=== PATIENT | female | born 1960 | race Caucasian/White ===

== ENCOUNTER → 2016-12-31 | Outpatient (CLI) | payer OTHER ==
[~2016-12-31] MED LIST: ASP325TEC PO; CRAN200C PO; HYDR1TAB PO; OMEG-12 PO; PREN1TAB39 PO
--- NOTE | 2017-01-01 08:15 | Diagnostic Imaging Report ---
Transabdominal and transvaginal pelvic ultrasound. INDICATION: Adnexal mass, pelvic pain. FINDINGS: The uterus is 7.5 x 4.2 x 3.9 cm. The endometrial stripe is 6 mm in thickness with no internal vascularity seen. There is heterogeneity in the myometrium. There is a hypoechoic rounded lesion in the central aspect of the uterus possibly involving the endometrium, not well defined on this exam. This could be a myometrial fibroid with submucosal component. The ovaries are not seen probably obscured by bowel gas. IMPRESSION: 1. There is endometrial thickening measuring up to 6 mm in thickness. This could correlate with endometrial hyperplasia, polyp, or carcinoma. 2. Indeterminate hypoechoic lesion in the central aspect of the uterus. This is superimposed on a background of heterogeneous myometrium. The endometrium is not clearly identified, but this lesion appears to be abutting the endometrium and could represent a uterine fibroid with a submucosal component. Report was faxed to office of Sharon Vaughn APRN, @ 8:14 AM/ryan. Dictated by: Dictated on workstation # [id number]
== END ==
LOC: RAD 13:41
PROVIDERS: ATTEND Nurse Practitioner
DX: R93.8 Abnormal findings on diagnostic imaging of other specified body structures (principal); Z12.31 Encounter for screening mammogram for malignant neoplasm of breast
CPT/HCPCS: 76830; 76856; 77067

== ENCOUNTER 2019-12-30 05:41 | Outpatient (RCR) | payer BC, OTHER ==
[~2019-12-30] VITALS: Ht 162.6 cm; Wt 81.8 kg
[~2019-12-30 05:41] MED LIST changes: +BACI1TAB3 PO; +ESTR1TAB24 PO; +GABA300C PO; +GEMF600T8 PO; +LOSA100T57 PO; +OMEG100032 PO; +PREN-8 PO; +PSYL0.5211 PO
== END 2019-12-30 08:55 | disposition home or self-care (01) ==
LOC: PREOP 05:41
PROVIDERS: ATTEND Specialist
DX: Z01.812 Encounter for preprocedural laboratory examination (principal); Z20.828 Contact with and (suspected) exposure to other viral communicable diseases
CPT/HCPCS: 87635

== ENCOUNTER 2020-01-01 06:54 | Day surgery (SDC) | payer BC, OTHER ==
[~2020-01-01] VITALS: Ht 162.6 cm; Wt 81.8 kg
--- NOTE | 2020-01-01 07:10 | Ophthalmologist Pre-Op Note ---
Pre-Operative Progress Note H&P Reviewed The H&P was reviewed, patient examined and no changes noted. Date H&P Reviewed: Jan 01, 2020 Time H&P Reviewed: 07:09 Pre-Op Dx Cataract, Right Eye AUGUSTINA BARBER MD Jan 01, 2020 07:09
[2020-01-01] MEDS ORDERED: MOXIFLOXACIN OPHTH SOLN 5 MG/ML 0.3 ML SYRINGE OP ONE (07:15)
[2020-01-01] MEDS ORDERED: TIMOLOL MALEATE 0.5% 5 ML (TIMOPTIC) BTL OU PRN (07:15)
[2020-01-01] MEDS ORDERED: POVIDONE (BETADINE) OPHTH SOLN 5% 30 ML OP ONE (07:15)
[2020-01-01] MEDS ORDERED: LIDOCAINE PF 1% 2 ML VIAL IR PRN (07:15)
[2020-01-01] MEDS: TETRACAINE 0.5% OPHTH SOLN 4 ML BTL (SINGLE DOSE ONLY) OU PRN ×4 (07:19→07:36)
[2020-01-01] MEDS: TROPICAMIDE 1% OPH SOLN (MYDRIACYL) 15 ML BTL OP SCH ×3 (07:25→07:36)
[2020-01-01] MEDS: PHENYLEPHRINE 10% OPHTH (NEO-SYN) 5 ML BTL OU SCH ×3 (07:25→07:36)
[2020-01-01] MEDS ORDERED: MIDAZOLAM 2 MG/2 ML (VERSED) VIAL ONE (07:30)
[2020-01-01 07:38] VITALS: BP 125/86
--- NOTE | 2020-01-01 08:58 | Ophthalmology Operative Report ---
Cataract removal/placement IOL PREOPERATIVE DIAGNOSIS: Cataract Right Eye POSTOPERATIVE DIAGNOSIS: Cataract Right Eye PROCEDURE: Cataract removal and placement of posterior chamber implant, right eye SURGEON: Twin Barber ANESTHESIA: Topical with sedation COMPLICATIONS: None ESTIMATED BLOOD LOSS: Minimal DESCRIPTION OF PROCEDURE: After proper informed consent was obtained, the patient, a 59 female, was taken to the Operating Room and the right eye was anesthetized with tetracaine. The right eye was then prepped and draped in the usual manner. A wire lid speculum was placed. A paracentesis was made at the left hand position. Preservative free lidocaine was injected into the anterior chamber followed by viscoelastic. A clear corneal incision was made in the temporal position. A capsulorrhexis was preformed and the central nuclear and cortical material were removed. The posterior capsule was polished and Kulwinder 12.0 AU00T0 IOL was placed into the capsular bag. The residual viscoelastic was aspirated and balanced saline solution was injected into the anterior chamber. Moxifloxacin was injected into the anterior chamber. The wound was checked and found to be water tight. The patient tolerated the procedure well without complications. TWIN BARBER MD Jan 01, 2020 08:58
[2020-01-01 09:05] VITALS: BP 127/69
--- NOTE | 2020-01-01 09:57 | Anesthesia-General Post-Op ---
MAC Patient Condition Mental Status/LOC: Same as Preop Cardiovascular: Satisfactory Nausea/Vomiting: Absent Respiratory: Satisfactory Pain: Controlled Complications: Absent Post Op Complications Complications None Follow Up Care/Instructions Patient Instructions None needed. Anesthesiology Discharge Order Discharge Order Patient is doing well, no complaints, stable vital signs, no apparent adverse anesthesia problems. No complications reported per nursing. DORIS WILSON CRNA Jan 01, 2020 09:57
[2020-01-01] MEDS ORDERED: acetaZOLAMIDE ER 500 MG CAP (DIAMOX SEQUELS) PO ONE (11:00)
== END 2020-01-01 09:05 | disposition home or self-care (01) ==
LOC: SDC 06:54
PROVIDERS: ATTEND Specialist
DX: H25.11 Age-related nuclear cataract, right eye (principal); I10 Essential (primary) hypertension; E78.00 Pure hypercholesterolemia, unspecified; Z79.899 Other long term (current) drug therapy; Z88.1 Allergy status to other antibiotic agents; Z83.3 Family history of diabetes mellitus
CPT/HCPCS: 66984; V2632

== ENCOUNTER 2020-01-26 06:35 | Outpatient (RCR) | payer BC | END 2020-01-26 15:00 | disposition home or self-care (01) | LOC: PREOP 06:35 | PROVIDERS: ATTEND Specialist | DX: Z01.818 Encounter for other preprocedural examination (principal) ==

== ENCOUNTER 2020-02-03 05:39 | Outpatient (RCR) | payer BC | END 2020-02-03 13:08 | disposition home or self-care (01) | LOC: PREOP 05:39 | PROVIDERS: ATTEND Specialist | DX: Z01.812 Encounter for preprocedural laboratory examination (principal); Z20.828 Contact with and (suspected) exposure to other viral communicable diseases | CPT/HCPCS: 87635 ==

== ENCOUNTER 2020-02-05 06:47 | Day surgery (SDC) | payer BC ==
[~2020-02-05] VITALS: Ht 162 cm; Wt 82.0 kg
[2020-02-05 06:50] VITALS: BP 126/105
[2020-02-05] MEDS: TETRACAINE 0.5% OPHTH SOLN 4 ML BTL (SINGLE DOSE ONLY) OU PRN ×4 (07:00→07:28)
[2020-02-05] MEDS ORDERED: LIDOCAINE PF 1% 2 ML VIAL IR PRN (07:00)
[2020-02-05] MEDS ORDERED: MOXIFLOXACIN OPHTH SOLN 5 MG/ML 0.3 ML SYRINGE OP ONE (07:00)
[2020-02-05] MEDS ORDERED: POVIDONE (BETADINE) OPHTH SOLN 5% 30 ML OP ONE (07:00)
[2020-02-05] MEDS ORDERED: TIMOLOL MALEATE 0.5% 5 ML (TIMOPTIC) BTL OU PRN (07:00)
[2020-02-05] MEDS: TROPICAMIDE 1% OPH SOLN (MYDRIACYL) 15 ML BTL OP SCH ×3 (07:10→07:28)
[2020-02-05] MEDS: PHENYLEPHRINE 10% OPHTH (NEO-SYN) 5 ML BTL OU SCH ×3 (07:10→07:28)
--- NOTE | 2020-02-05 07:51 | Ophthalmologist Pre-Op Note ---
Pre-Operative Progress Note H&P Reviewed The H&P was reviewed, patient examined and no changes noted. Date H&P Reviewed: Feb 05, 2020 Time H&P Reviewed: 07:51 Pre-Op Dx Cataract, Left Eye AUGUSTINA BARBER MD Feb 05, 2020 07:51
[2020-02-05] MEDS ORDERED: MIDAZOLAM 2 MG/2 ML (VERSED) VIAL ONE (07:54)
[2020-02-05] MEDS ORDERED: acetaZOLAMIDE ER 500 MG CAP (DIAMOX SEQUELS) PO ONE (08:00)
--- NOTE | 2020-02-05 08:17 | Ophthalmology Operative Report ---
Cataract removal/placement IOL PREOPERATIVE DIAGNOSIS: Cataract Left Eye POSTOPERATIVE DIAGNOSIS: Cataract Left Eye PROCEDURE: Cataract removal and placement of posterior chamber implant, left eye SURGEON: Twin Barber ANESTHESIA: Topical with sedation COMPLICATIONS: None ESTIMATED BLOOD LOSS: Minimal DESCRIPTION OF PROCEDURE: After proper informed consent was obtained, the patient, a 60 female, was taken to the Operating Room and the left eye was anesthetized with tetracaine. The left eye was then prepped and draped in the usual manner. A wire lid speculum was placed. A paracentesis was made at the left hand position. Preservative free lidocaine was injected into the anterior chamber followed by viscoelastic. A clear corneal incision was made in the temporal position. A capsulorrhexis was preformed and the central nuclear and cortical material were removed. The posterior capsule was polished and an Kulwinder 17.0 AU00T0 was placed into the capsular bag. The residual viscoelastic was aspirated and balanced saline solution was injected into the anterior chamber. Moxifloxacin was injected into the anterior chamber. The wound was checked and found to be water tight. The patient tolerated the procedure well without complications. TWIN BARBER MD Feb 05, 2020 08:17
[2020-02-05 08:27] VITALS: BP 125/75
--- NOTE | 2020-02-05 10:16 | Anesthesia-General Post-Op ---
MAC Patient Condition Mental Status/LOC: Same as Preop Cardiovascular: Satisfactory Nausea/Vomiting: Absent Respiratory: Satisfactory Pain: Controlled Complications: Absent Post Op Complications Complications None Follow Up Care/Instructions Patient Instructions None needed. Anesthesiology Discharge Order Discharge Order Patient is doing well, no complaints, stable vital signs, no apparent adverse anesthesia problems. No complications reported per nursing. VESNA EUCEDA CRNA Feb 05, 2020 10:16
== END 2020-02-05 08:27 | disposition home or self-care (01) ==
LOC: SDC 06:47
PROVIDERS: ATTEND Specialist
DX: H25.12 Age-related nuclear cataract, left eye (principal); I10 Essential (primary) hypertension; E78.00 Pure hypercholesterolemia, unspecified; Z79.899 Other long term (current) drug therapy; Z88.1 Allergy status to other antibiotic agents; Z83.3 Family history of diabetes mellitus
CPT/HCPCS: 66984; V2632

== ENCOUNTER 2020-08-09 17:49 | Emergency (ER) | payer BC ==
[~2020-08-09 17:49] MED LIST changes: -GEMF600T8 PO; +GEMF600T88 PO
[2020-08-09] MEDS ORDERED: ENOXAPARIN 80 MG/0.8 ML (LOVENOX) SYR SC ONE (18:45)
--- NOTE | 2020-08-09 19:08 | ED Lower Extremity ---
General Chief Complaint: Lower Extremity Stated Complaint: RT LEG PAIN/SWELLING Source: patient History of Present Illness Date Seen by Provider: Aug 09, 2020 Time Seen by Provider: 18:00 Initial Comments Patient is a 52-year-old female presents with cute onset right calf/leg pain starting 4 hours prior to ED arrival. Patient denies trauma repetitive strain injury. Right calf is tender swollen nonerythematous. Patient states she first noticed light petechial rash on right leg week prior. No itching, warmth or fever. Right leg is approximately 30% larger than the left leg. Patient denies history of DVT PE, chest pain palpitations or shortness of breath. She denies any recent travel or other PE risk factors. No known history of cancer. No medications or therapies taken prior to ED arrival. Onset: this afternoon Pain/Injury Location: right leg Method of Injury: other Modifying Factors: Improves With Other Allergies and Home Medications Allergies Coded Allergies: Cephradine (Unverified Allergy, 05/31/11) Home Medications Bacillus Coagulans 1 Each Tab.chew, 1 EACH PO DAILY, (Reported) Estradiol 1 Mg Tablet, 1 MG PO DAILY, (Reported) Gabapentin 300 Mg Capsule, 300 MG PO QID, (Reported) Gemfibrozil 600 Mg Tablet, 600 MG PO BID, (Reported) Losartan Potassium 100 Mg Tablet, 100 MG PO DAILY, (Reported) [place]-3/Dha/Epa/Fish Oil 1,000 Mg Capsule, 1,000 MG PO DAILY, (Reported) Vit W-Ca,Fe,FA(<1 mg) 1 Each Tablet, 1 EACH PO DAILY, (Reported) Psyllium Husk 0.52 Gm Capsule, 0.52 GM PO DAILY, (Reported) Patient Home Medication List Home Medication List Reviewed: Yes Review of Systems Constitutional: no symptoms reported EENTM: no symptoms reported Respiratory: no symptoms reported Cardiovascular: no symptoms reported Gastrointestinal: no symptoms reported Genitourinary: no symptoms reported Musculoskeletal: no symptoms reported Skin: no symptoms reported Psychiatric/Neurological: No Symptoms Reported All Other Systems Reviewed Negative Unless Noted: Yes Past Mqvmcdy-Jkawuk-Cpuxtv Hx Past Med/Social Hx: Reviewed Nursing Past Med/Soc Hx Past Medical History Reproductive Disorders: Yes (MENORRHAGIA) Physical Exam Vital Signs Capillary Refill : Height, Weight, BMI Height: '" Weight: lbs. oz. kg; BMI Method: General Appearance: WD/WN, no apparent distress Cardiovascular: regular rate, rhythm Respiratory: lungs clear, normal breath sounds Progress/Results/Core Measures Results/Orders Lab Results Laboratory Tests Test 08/09/20 18:55 Range/Units My Orders Orders - ISABEL HUITRON DO Cbc With Automated Diff (08/09/20 18:41) Basic Metabolic Panel (08/09/20 18:41) Enoxaparin Injection (Lovenox Injection) (08/09/20 18:45) Departure Communication (Admissions) Basic labs obtained. Patient with high clinical index of suspicion for DVT. Ultrasound is not available at this facility. Calls were made to [facility] in [facility] which also lack ultrasound capability. Patient was given a single dose of Lovenox with instructions to return to the emergency department tomorrow morning for venous Doppler ultrasound of right leg to rule out DVT. She verbalized understanding that Lovenox is only a temporizing measure until ultrasound can be made to establish diagnosis. Patient agrees to discharge plan prior to departure. Impression Primary Impression: Right leg pain Disposition: 01 HOME, SELF-CARE Condition: Stable Departure-Patient Inst. Decision time for Depature: 19:06 Referrals: NOE ALAN APRN (PCP) Primary Care Physician CHRISTIAN VINES MD (Family) Primary Care Physician Patient Instructions: Deep Vein Thrombosis (Blood Clots in the Legs) (DC) Add. Discharge Instructions: You were evaluated in the emergency department for right leg pain and swelling. The cause of your symptoms has not been determined but your exam is concerning for a blood clot in your right leg. A prophylactic dose of Lovenox was given prior to obtaining an outpatient ultrasound tomorrow. Please return to the emergency department after 9 AM or make arrangements with your PCP for outpatient ultrasound tomorrow. In the meantime, if you develop chest pain palpitations shortness of breath or other concerning symptoms, return to the emergency department immediately. All discharge instructions reviewed with patient and/or family. Voiced understanding. ISABEL HUITRON DO Aug 09, 2020 19:07
[2020-08-09 19:12] LABS: BASOPHILS % (AUTO) 0 % (0-10); EOSINOPHILS # (AUTO) 0.1 10^3/uL (0.0-0.3); EOSINOPHILS % (AUTO) 1 % (0-10); HEMATOCRIT 37 % (35-52); HEMOGLOBIN 12.3 G/DL (11.5-16.0); LYMPHOCYTES # (AUTO) 1.5 X 10^3 (1.0-4.0); LYMPHOCYTES % (AUTO) 16 % (12-44); MEAN CORPUSCULAR HEMOGLOBIN 32 PG (25-34); MEAN CORPUSCULAR HGB CONC 33 G/DL (32-36); MEAN CORPUSCULAR VOLUME 97 FL (80-99); MEAN PLATELET VOLUME 9.9 FL (7.4-10.4); MONOCYTES # (AUTO) 0.8 X 10^3 (0.0-1.0); MONOCYTES % (AUTO) 9 % (0-12); NEUTROPHILS # (AUTO) 6.7 X 10^3 (1.8-7.8); NEUTROPHILS % (AUTO) 74 % (42-75); PLATELET COUNT 152 10^3/uL (130-400); WHITE BLOOD COUNT 9.1 10^3/uL (4.3-11.0)
[2020-08-09 19:19] LABS: CALCIUM 9.8 MG/DL (8.5-10.1); CREATININE SERUM 0.95 MG/DL (0.60-1.30); POTASSIUM 4.3 MMOL/L (3.6-5.0)
[2020-08-09 19:28] VITALS: BP 129/87
== END 2020-08-09 19:28 | disposition home or self-care (01) ==
LOC: EDUNIT# 17:49 → ER FS 17:52
DX: M79.604 Pain in right leg (principal)
CPT/HCPCS: 36415; 80048; 85025; 99283

== ENCOUNTER → 2020-08-10 | Outpatient (CLI) | payer BC ==
--- NOTE | 2020-08-10 11:31 | Diagnostic Imaging Report ---
EXAMINATION: US Right Lower Extremity Venous Duplex. TECHNIQUE: Multiple real-time grayscale images were obtained over the right lower extremity in various projections. Additional spectral analysis and color Doppler duplex images were also obtained. HISTORY: Right lower extremity pain and edema. COMPARISON: None available. FINDINGS: Deep vein thrombus is seen throughout the right superficial femoral and popliteal veins and included veins of the right calf. The common femoral and profunda femoris veins of the right lower extremity demonstrate normal compressibility and color Doppler filling. IMPRESSION: 1. Occlusive deep vein thrombus involving the right superficial femoral and popliteal veins and extending into the calf veins. Findings were called to the emergency department immediately following the exam by the sales training representative. Dictated by: Dictated on workstation # [id number]
== END ==
LOC: RAD 10:00
PROVIDERS: ATTEND Emergency Medicine
DX: I82.411 Acute embolism and thrombosis of right femoral vein (principal); I82.431 Acute embolism and thrombosis of right popliteal vein

== ENCOUNTER 2020-09-07 11:33 | Emergency (ER) | payer SELFPAY ==
[~2020-09-07] VITALS: Ht 162 cm; Wt 86.0 kg
--- NOTE | 2020-09-07 11:36 | ED Respiratory ---
General Chief Complaint: Respiratory Problems Stated Complaint: CHEST PAIN History of Present Illness Date Seen by Provider: Sep 07, 2020 Time Seen by Provider: 11:36 Initial Comments 60-year-old female presents with 3-day history of chest tightness and shortness of air. Denies any recent illness, fever cough or malaise. Denies any radiation of pain, abdominal pain or back pain. Recent past medical history significant for DVT of the right lower extremity 4 weeks ago and she has been on Eliquis ever since. He is a non-smoker and has no history of asthma or reactive airways. Allergies and Home Medications Allergies Coded Allergies: cephradine (Unverified Allergy, Unknown, 08/10/20) Home Medications Bacillus Coagulans 1 Each Tab.chew, 1 EACH PO DAILY, (Reported) Estradiol 1 Mg Tablet, 1 MG PO DAILY, (Reported) Gabapentin 300 Mg Capsule, 300 MG PO QID, (Reported) Gemfibrozil 600 Mg Tablet, 600 MG PO BID, (Reported) Losartan Potassium 100 Mg Tablet, 100 MG PO DAILY, (Reported) [place]-3/Dha/Epa/Fish Oil 1,000 Mg Capsule, 1,000 MG PO DAILY, (Reported) Prednisone 50 Mg Tab, 50 MG PO DAILY Prescribed by: ENRIQUE MARTINEZ on 09/07/20 1358 Vit W-Ca,Fe,FA(<1 mg) 1 Each Tablet, 1 EACH PO DAILY, (Reported) Psyllium Husk 0.52 Gm Capsule, 0.52 GM PO DAILY, (Reported) Patient Home Medication List Home Medication List Reviewed: Yes Review of Systems Review of Systems Constitutional: No fever, No malaise, No weakness EENTM: no symptoms reported Respiratory: see HPI; No cough; short of breath; No stridor, No wheezing Cardiovascular: No edema, No palpitations, No syncope; other (chest tightness, not pain) Gastrointestinal: No abdominal pain, No loss of appetite, No nausea, No vomiting Musculoskeletal: No back pain, No joint pain, No muscle pain Skin: No change in color, No rash Psychiatric/Neurological: Denies Numbness, Denies Seizure, Denies Weakness Hematologic/Lymphatic: Blood Clots; Denies Easy Bleeding, Denies Easy Bruising Past Ezaaawu-Yiafos-Dlkpdq Hx Patient Social History Tobacco Use?: No Seasonal Allergies Seasonal Allergies: No Past Medical History Surgeries: Yes (ablation) Cardiac, Section, Eye Surgery, Orthopedic, Tubal Ligation Respiratory: No Cardiac: Yes Hypertension, Irregular Heartbeat, Peripheral Vascular Neurological: Yes Neuropathy Reproductive Disorders: Yes (MENORRHAGIA) Sexually Transmitted Disease: No Genitourinary: No Gastrointestinal: No Musculoskeletal: Yes Chronic Back Pain Endocrine: No HEENT: Yes (bilateral cataract removal) Cataract Cancer: No Psychosocial: No Integumentary: No Blood Disorders: No Physical Exam Vital Signs - First Documented 09/07/20 11:40 Temp 36.6 Pulse 95 Resp 20 B/P (MAP) 147/74 (98) Pulse Ox 99 O2 Delivery Room Air Capillary Refill : Height: '" Weight: lbs. oz. kg; BMI Method: General Appearance: WD/WN, no apparent distress HEENT: PERRL/EOMI, normal ENT inspection Neck: non-tender, supple Respiratory: chest non-tender, lungs clear, normal breath sounds, no respiratory distress, no accessory muscle use Cardiovascular: regular rate, rhythm, no edema, no gallop, no JVD, no murmur Gastrointestinal: non tender, soft Extremities: normal range of motion, non-tender, normal inspection, no pedal edema, no calf tenderness Neurologic/Psychiatric: no motor/sensory deficits, alert, normal mood/affect, oriented x 3 Skin: normal color, warm/dry Progress/Results/Core Measures Suspected Sepsis SIRS Temperature: Pulse: Respiratory Rate: Laboratory Tests 09/07/20 11:43: White Blood Count 5.7 Blood Pressure / Mean: Laboratory Tests 09/07/20 11:43: Creatinine 0.98, Platelet Count 184, Total Bilirubin 0.2 Results/Orders Lab Results Laboratory Tests Test 09/07/20 11:43 Range/Units White Blood Count 5.7 4.3-11.0 10^3/uL Red Blood Count 3.72 L 4.35-5.85 10^6/uL Hemoglobin 11.6 11.5-16.0 G/DL Hematocrit 35 35-52 % Mean Corpuscular Volume 95 80-99 FL Mean Corpuscular Hemoglobin 31 25-34 PG Mean Corpuscular Hemoglobin Concent 33 32-36 G/DL Red Cell Distribution Width 13.6 10.0-14.5 % Platelet Count 184 130-400 10^3/uL Mean Platelet Volume 9.9 7.4-10.4 FL Immature Granulocyte % (Auto) 0 % Neutrophils (%) (Auto) 47 42-75 % Lymphocytes (%) (Auto) 38 12-44 % Monocytes (%) (Auto) 11 0-12 % Eosinophils (%) (Auto) 3 0-10 % Basophils (%) (Auto) 1 0-10 % Neutrophils # (Auto) 2.7 1.8-7.8 X 10^3 Lymphocytes # (Auto) 2.1 1.0-4.0 X 10^3 Monocytes # (Auto) 0.7 0.0-1.0 X 10^3 Eosinophils # (Auto) 0.2 0.0-0.3 10^3/uL Basophils # (Auto) 0.0 0.0-0.1 10^3/uL Immature Granulocyte # (Auto) 0.0 0.0-0.1 10^3/uL D-Dimer 0.85 H 0.00-0.49 UG/ML Sodium Level 141 135-145 MMOL/L Potassium Level 4.0 3.6-5.0 MMOL/L Chloride Level 103 98-107 MMOL/L Carbon Dioxide Level 26 21-32 MMOL/L Anion Gap 12 5-14 MMOL/L Blood Urea Nitrogen 12 7-18 MG/DL Creatinine 0.98 0.60-1.30 MG/DL Estimat Glomerular Filtration Rate 58 BUN/Creatinine Ratio 12 Glucose Level 91 70-105 MG/DL Calcium Level 10.2 H 8.5-10.1 MG/DL Corrected Calcium 9.9 8.5-10.1 MG/DL Total Bilirubin 0.2 0.1-1.0 MG/DL Aspartate Amino Transf (AST/SGOT) 22 5-34 U/L Alanine Aminotransferase (ALT/SGPT) 21 0-55 U/L Alkaline Phosphatase 53 40-136 U/L Troponin I < 0.30 <0.30 NG/ML Total Protein 7.0 6.4-8.2 GM/DL Albumin 4.4 3.2-4.5 GM/DL My Orders Orders - JAXVENSTENRIQUE ADAM DO Ed Iv/Invasive Line Start (09/07/20 11:36) Ekg Tracing (09/07/20 11:36) Cbc With Automated Diff (09/07/20 11:36) Comprehensive Metabolic Panel (09/07/20 11:36) Troponin I Fs (09/07/20 11:36) Fibrin Degradation Products (09/07/20 11:36) Chest 1 View Ap/Pa Only (09/07/20 11:36) Ct Angio Chest W (09/07/20 13:01) Iohexol Injection (Omnipaque 350 Mg/Ml 1 (09/07/20 13:15) Received Contrast (Hold Metformin- Contr (09/07/20 13:15) Sodium Chloride Flush (Catheter Flush Sy (09/07/20 13:15) Ns (Ivpb) (Sodium Chloride 0.9% Ivpb Bag (09/07/20 13:15) Ns Iv 1000 Ml (Sodium Chloride 0.9%) (09/07/20 13:15) Albuterol/Ipra Inhalation Soln (Duoneb I (09/07/20 13:45) Svn Small Volume Nebulizer (09/07/20 13:36) Medications Given in ED Current Medications Medications Dose Ordered Sig/Sal Route Start Time Stop Time Status Last Admin Dose Admin Albuterol/ Ipratropium 3 ml ONCE ONCE INH 09/07/20 13:45 09/07/20 13:46 DC 09/07/20 13:41 3 ML Iohexol 100 ml ONCE ONCE IV 09/07/20 13:15 09/07/20 13:16 DC 09/07/20 13:15 100 ML Sodium Chloride 10 ml NEEDED PRN IV 09/07/20 13:15 09/07/20 13:15 10 ML Sodium Chloride 100 ml ONCE ONCE IV 09/07/20 13:15 09/07/20 13:16 DC 09/07/20 13:15 100 ML Vital Signs/I&O 09/07/20 09/07/20 11:40 14:05 Temp 36.6 36.4 Pulse 95 84 Resp 20 16 B/P (MAP) 147/74 (98) 125/72 Pulse Ox 99 99 O2 Delivery Room Air Room Air Capillary Refill : Progress Note : Progress Note normal labs, CXR and CT w contrast. Given trial of bronchodil. w a Duoneb and had some relief of chest tightness. Discussed steroid burst for the next 5 days, using an inahler (she just got recently) every 4 hours as needed. ECG Initial ECG Impression Date: Sep 07, 2020 Initial ECG Impression Time: 12:00 Initial ECG Rate: 90 Initial ECG Rhythm: Normal Sinus Initial ECG Intervals: Normal Initial ECG Impression: Normal Initial ECG Comparisson: No Previous ECG Available Diagnostic Imaging Comments Date of Exam:09/07/20 CHEST 1 VIEW AP/PA ONLY Indication: Shortness of breath, history of DVT. Findings: Lungs are clear. No findings of a pulmonary hemorrhage, infarct or consolidation. No failure, effusion or pneumothorax. Impression: Normal frontal chest x-ray. Dictated by: Dictated on workstation # [id number] Dict: 09/07/20 1154 Trans: 09/07/20 1158 CV [id number] Interpreted by: GAEL ELLSWORTH Electronically signed by: GAEL LELSWORTH 09/07/20 1158 Date of Exam:09/07/20 CT ANGIO CHEST W PROCEDURE: CT angiography of the chest with contrast. TECHNIQUE: Multiple contiguous axial images were obtained through the chest after uneventful bolus administration of intravenous contrast. 3D reconstructed CTA MIP acquisitions were also performed. Auto Exposure Controls were utilized during the CT exam to meet ALARA standards for radiation dose reduction. INDICATION: Elevated d-dimer, shortness of breath, patient has a history of deep vein thrombus. I have no previous for direct comparison. The pulmonary arterial branches were well opacified on a technical basis, widely patent with no filling defect. There was no evidence for pulmonary arterial embolus. Heart size and configuration normal. The patent thoracic aorta is nonaneurysmal, nonfocal and nonacute. There is no pleural or pericardial effusion. No acute soft tissue or osseous chest wall pathology. The lungs themselves are clear aside from trace partial atelectasis. No evidence for pneumonia, edema or lung mass. The visualized upper abdomen showed no acute appearing pathology. IMPRESSION: Negative for PE or other acute abnormalities. Dictated on workstation # [id number] Dict: 09/07/20 1319 Trans: 09/07/20 1323 BENNY [id number] Interpreted by: GAEL ELLSWORTH Electronically signed by: Departure Impression Primary Impression: Dyspnea Qualified Codes: R06.00 - Dyspnea, unspecified Disposition: 01 HOME, SELF-CARE Condition: Stable Departure-Patient Inst. Decision time for Depature: :59 Referrals: NOE ALAN APRN (PCP) Primary Care Physician CHRISTIAN VINES MD (Family) Primary Care Physician Patient Instructions: Shortness of Breath (Dyspnea) (DC) Add. Discharge Instructions: Follow up with your PCP in 5 to 7 days for re-evaluation of your shortness of air. Return to the ER for any worsening of your symptoms All discharge instructions reviewed with patient and/or family. Voiced understanding. Scripts Prednisone (Prednisone) 50 Mg Tab 50 MG PO DAILY, #7 TAB Prov: ENRIQUE MARTINEZ DO 09/07/20 ENRIQUE MARTINEZ DO Sep 07, 2020 11:36
[2020-09-07 11:52] LABS: BASOPHILS % (AUTO) 1 % (0-10); EOSINOPHILS % (AUTO) 3 % (0-10); HEMATOCRIT 35 % (35-52); HEMOGLOBIN 11.6 G/DL (11.5-16.0); LYMPHOCYTES % (AUTO) 38 % (12-44); MEAN CORPUSCULAR HEMOGLOBIN 31 PG (25-34); MEAN CORPUSCULAR HGB CONC 33 G/DL (32-36); MEAN CORPUSCULAR VOLUME 95 FL (80-99); MEAN PLATELET VOLUME 9.9 FL (7.4-10.4); MONOCYTES % (AUTO) 11 % (0-12); NEUTROPHILS % (AUTO) 47 % (42-75); PLATELET COUNT 184 10^3/uL (130-400); WHITE BLOOD COUNT 5.7 10^3/uL (4.3-11.0)
[2020-09-07 11:53] LABS: EOSINOPHILS # (AUTO) 0.2 10^3/uL (0.0-0.3); LYMPHOCYTES # (AUTO) 2.1 X 10^3 (1.0-4.0); MONOCYTES # (AUTO) 0.7 X 10^3 (0.0-1.0); NEUTROPHILS # (AUTO) 2.7 X 10^3 (1.8-7.8)
--- NOTE | 2020-09-07 11:56 | Diagnostic Imaging Report ---
Indication: Shortness of breath, history of DVT. Findings: Lungs are clear. No findings of a pulmonary hemorrhage, infarct or consolidation. No failure, effusion or pneumothorax. Impression: Normal frontal chest x-ray. Dictated by: Dictated on workstation # [id number]
[2020-09-07 12:13] LABS: CARBON DIOXIDE 26 MMOL/L (21-32); CHLORIDE 103 MMOL/L (98-107); SODIUM 141 MMOL/L (135-145)
[2020-09-07 12:14] LABS: ALANINE AMINOTRANSFERASE 21 U/L (0-55); ALBUMIN 4.4 GM/DL (3.2-4.5); ALKALINE PHOSPHATASE 53 U/L (40-136); BILIRUBIN,TOTAL 0.2 MG/DL (0.1-1.0); BUN/CREATININE RATIO 12; CALCIUM 10.2 MG/DL (8.5-10.1); CREATININE SERUM 0.98 MG/DL (0.60-1.30); GFR ESTIMATED 58; GLUCOSE 91 MG/DL (70-105)
[2020-09-07] MEDS ORDERED: NS IV 1000 ML 1,000 ML IV SCH (13:15)
[2020-09-07] MEDS ORDERED: HOLD METFORMIN - RECEIVED CONTRAST 20 ML VIAL IV SCH (13:15)
[2020-09-07] MEDS ORDERED: NS 100 ML (IVPB) BAG IV ONE (13:15)
[2020-09-07] MEDS ORDERED: CATHETER FLUSH 10 ML SYR IV PRN (13:15)
[2020-09-07] MEDS ORDERED: IOHEXOL 350 MG/ML 100 ML (OMNIPAQUE 350) VIAL IV ONE (13:15)
--- NOTE | 2020-09-07 13:23 | Diagnostic Imaging Report ---
PROCEDURE: CT angiography of the chest with contrast. TECHNIQUE: Multiple contiguous axial images were obtained through the chest after uneventful bolus administration of intravenous contrast. 3D reconstructed CTA MIP acquisitions were also performed. Auto Exposure Controls were utilized during the CT exam to meet ALARA standards for radiation dose reduction. INDICATION: Elevated d-dimer, shortness of breath, patient has a history of deep vein thrombus. I have no previous for direct comparison. The pulmonary arterial branches were well opacified on a technical basis, widely patent with no filling defect. There was no evidence for pulmonary arterial embolus. Heart size and configuration normal. The patent thoracic aorta is nonaneurysmal, nonfocal and nonacute. There is no pleural or pericardial effusion. No acute soft tissue or osseous chest wall pathology. The lungs themselves are clear aside from trace partial atelectasis. No evidence for pneumonia, edema or lung mass. The visualized upper abdomen showed no acute appearing pathology. IMPRESSION: Negative for PE or other acute abnormalities. Dictated by: Dictated on workstation # [id number]
[2020-09-07] MEDS ORDERED: RT-ALBUTEROL/IPRATROPIUM 3 ML (DUONEB) VIAL INH ONE (13:45)
[2020-09-07] MEDS ORDERED: PRD50T PO ×2 (13:58→14:16)
[2020-09-07 14:05] VITALS: BP 125/72
== END 2020-09-07 14:13 | disposition home or self-care (01) ==
LOC: EDUNIT# 11:33 → ER FS 11:35
DX: R06.00 Dyspnea, unspecified (principal); I10 Essential (primary) hypertension
CPT/HCPCS: 36415; 71045; 71275; 80053; 84484; 85025; 85379; 93005

== ENCOUNTER → 2020-12-12 | Outpatient (CLI) | payer BC ==
[~2020-12-12] MED LIST changes: +PRD50T PO
--- NOTE | 2020-12-12 16:13 | Diagnostic Imaging Report ---
PROCEDURE: Pelvic comp/transvaginal sonogram. TECHNIQUE: Complete transabdominal and transvaginal pelvic ultrasound was performed. In addition, limited pelvic Doppler was performed. INDICATION: Pelvic pain. FINDINGS: The uterus is anteverted measuring 7.2 x 3.8 x 3.9 cm. The endometrium is 7 mm in thickness. There is a cervical nabothian cyst. There is a probable fibroid anteriorly measuring 2.1 x 1.5 x 2.6 cm. The right ovary measures 1.9 x 1.2 x 1.2 cm and the left ovary measures 2.2 x 1.1 x 2.0 cm. There is blood flow to both ovaries. No adnexal mass or free fluid is detected. IMPRESSION: Probable uterine fibroid. In addition. There is some mild endometrial thickening at 7 mm. No other abnormalities are seen. Dictated by: Dictated on workstation # [id number]
== END ==
LOC: RAD 14:30
PROVIDERS: ATTEND Surgery
DX: R93.89 Abnormal findings on diagnostic imaging of other specified body structures (principal); R10.2 Pelvic and perineal pain
CPT/HCPCS: 76830; 76856

== ENCOUNTER 2022-10-23 05:32 | Outpatient (CLI) | payer BC ==
[~2022-10-23] VITALS: Ht 160 cm; Wt 80.0 kg
[~2022-10-23 05:32] MED LIST changes: -LOSA100T57 PO; +LOSA100T58 PO; +METAMUCIL0.52 GM PO; -PSYL0.5211 PO
[2022-10-23] MEDS ORDERED: HYDR-3820 PO (11:50)
[2022-10-23] MEDS ORDERED: GABA100C PO (11:50)
[2022-10-23] MEDS ORDERED: ACYC400T21 PO (11:50)
[2022-10-23] MEDS ORDERED: PANT40SU PO (11:50)
[2022-10-23] MEDS ORDERED: APIX5TAB PO (11:50)
[2022-10-23] MEDS ORDERED: ALBU90AE IH (11:50)
== END 2022-10-23 16:00 | disposition home or self-care (01) ==
LOC: PREOP 05:32
PROVIDERS: ATTEND Obstetrics & Gynecology
DX: Z01.818 Encounter for other preprocedural examination (principal)

== ENCOUNTER 2022-10-29 06:22 | Day surgery (SDC) | payer BC ==
[~2022-10-29] VITALS: Ht 160 cm; Wt 80.0 kg
[2022-10-29] VITALS (10 sets, daily range): BP systolic 82–119; BP diastolic 48–74
[~2022-10-29 06:22] MED LIST changes: +ACYC400T21 PO; +ALBU90AE IH; +APIX5TAB PO; +GABA100C PO; +HYDR-3820 PO; +PANT40SU PO
[2022-10-29] MEDS ORDERED: PROVIGIL PO (07:06)
[2022-10-29] MEDS: LACTATED RINGERS 1,000 ML 1,000 ML IV PRN ×2 (07:08→07:57)
[2022-10-29] MEDS ORDERED: dexAMETHasone INJ 10 MG/ML 1 ML VIAL ONE (07:12)
[2022-10-29] MEDS ORDERED: LIDOCAINE PF 2% 5 ML VIAL ONE (07:12)
[2022-10-29] MEDS ORDERED: ONDANSETRON INJECTION 4 MG/2 ML (SDV) ONE (07:12)
[2022-10-29] MEDS ORDERED: proPOfol INJECTION 200 MG/20 ML VIAL IV ONE (07:12)
[2022-10-29] MEDS ORDERED: fentaNYL INJECTION 100 MCG/2 ML VIAL ONE (07:12)
--- NOTE | 2022-10-29 07:23 | Progress Note-Pre Operative ---
Pre-Operative Progress Note Date H&P Reviewed: Oct 29, 2022 Time H&P Reviewed: 07:23 History & Physical: H&P Reviewed, No changes noted Pre-Operative Diagnosis: PMB thickened endometrium Plan for D&C hysteroscopy SAVANAH ARIAS DO Oct 29, 2022 07:23
--- NOTE | 2022-10-29 07:29 | Anesthesia-General Post-Op ---
General Patient Condition Mental Status/LOC: Same as Preop Cardiovascular: Satisfactory Nausea/Vomiting: Absent Respiratory: Satisfactory Pain: Controlled Complications: Absent Post Op Complications Complications None Follow Up Care/Instructions Patient Instructions None needed. Anesthesia/Patient Condition Patient Condition Patient was just transferred back [place] [facility] [place] PAC[place] and she was doing well, no complaints, stable vital signs, no apparent adverse anesthesia problems. No complications reported per nursing. BRYSON MELTON DO Oct 29, 2022 07:29
[2022-10-29] MEDS ORDERED: morphine INJ 10 MG/ML 1ML (SYR OR VIAL) IVP ONE (07:30)
[2022-10-29] MEDS ORDERED: ONDANSETRON INJECTION 4 MG/2 ML (SDV) IVP PRN (07:30)
[2022-10-29] MEDS ORDERED: HYDROmorphone INJECTION 2 MG/ML VIAL IV ONE (07:30)
[2022-10-29] MEDS ORDERED: SEVOFLURANE (ULTANE) 15 ML INHAL SOLN ONE (07:59)
--- NOTE | 2022-10-29 08:23 | Hysteroscopy D&C Operative ---
Hysteroscopy D&C Note Hysteroscopy D&C Note Date of Procedure: 10/29/22 Preoperative Diagnosis: Melanie Lozano is a 62-year-old with history of thickened endometriumWith the inability to perform an EMBxIn the office. Patient had a history of endometrial ablation.. Postoperative Diagnosis: Same Surgeon: SAVANAH ARIAS Race Relations Adviser: [none] Anesthesia: GeneralLMA Name of the Procedure: Hysteroscopy, dilatation and curettage Findings of the Procedure:AdhesionsThin endometrium EBL: Minimal Specimen(s) collected/removed: Endometrial Curettings Complications: Possible perforation of the uterus Condition: []Stable to recovery room Indications for Procedure: This 62-year-old presented with a history of thickened endometrium. Patient is on Eliquis with a history of VTE.presents With history of thickened endometrium measuring 7 mm on ultrasound. She was seen by her PCP for an endometrial biopsy but was unable to complete. She was seen by me in the office in August and we attempted endometrial biopsy as well but was unable to do so. Patient had a history of endometrial ablation secondary to abnormal uterine bleeding. She was on HRT and developed a VTE and subseque ntly was taken off HRT and was on Eliquis.We performed a CA125 which was normal we discussed hysterectomy but patient declined hysterectomy and requested D&C hysteroscopy. We discussed in detail the risk benefits and alternatives including the risks of infection, bleeding, injury to bowel bladder ureters perforation of uterus scar tissue of the uterus VTE nerve and limb damage ane sthesia risks (this is not medically complex) and the benefits of obtaining a pathological sample for further study.The patient verbalized understanding of the risk benefits and alternatives, signed consents and was ready to proceed. Patient did receive cardiac clearance. Description of Procedure: The patient was taken to the operating room and placed in the dorsal supine position. General anesthesia was obtained without difficulty by our anesthesia colleagues. A timeout was performed. Her legs were placed in stirrups and she was moved to the dorsal lithotomy position. The vagina, perineum and vulva were prepped and draped in the typical sterile fashion. The bladder was emptied for 50 cc total. A weighted speculum was placed in the vaginal vault and the anterior lip of the cervix was grasped with a single- tooth tenaculum. The cervix was gently dilated with Hegar dilators to accommodate the hysteroscope. The hysteroscope was inserted andUterine cavity was visualized. I was unable to visualize either ostia secondary to the adhesions inside the uterine cavity from her previous endometrial ablation. It appeared that we may have perforated at the fundus. This was a known risk factor which was discussed with the patient. The hysteroscope was then removed and endometrial curettings were obtained. These were sent to pathology for further analysis. The single-tooth tenaculum and weighted speculum were removed. The area was inspected there was noted to be no active bleeding. The patient was taken to Recovery room in stable condition. All my counts were correct. EBL was less than 50 fluids were 1300 urine output was 50 cc I/O-200/180. The patient was awakened from anesthesia and taken to the recovery room in stable condition. Vitals - Labs Vital Signs - I&O Vital Signs Date Time Temp Pulse Resp B/P (MAP) Pulse Ox O2 Delivery O2 Flow Rate FiO2 10/29/22 06:45 36.7 77 18 119/74 (89) 98 Room Air SAVANAH ARIAS DO Oct 29, 2022 08:23
--- NOTE | 2022-10-29 09:01 | Discharge Inst-Simple/Standard ---
Discharge Inst-Standard Reconcile Patient Problems Problems Reviewed?: Yes Discharge Medications New, Converted or Re-Newed RX: Other Patient Instructions/Follow Up Plan of Care/Instructions/FU: pelvic rest, f/u in 1 week Activity as Tolerated: Yes Discharge Diet: Regular Diet Return to The Hospital For: increased pain, vaginal bleeding SAVANAH ARIAS DO Oct 29, 2022 09:01
[2022-10-29] MEDS ORDERED: APIX5TAB PO (09:03)
== END 2022-10-29 09:55 | disposition home or self-care (01) ==
LOC: SDC 06:22
PROVIDERS: ATTEND Obstetrics & Gynecology
DX: N95.0 Postmenopausal bleeding (principal); G47.33 Obstructive sleep apnea (adult) (pediatric); E66.9 Obesity, unspecified; Z99.81 Dependence on supplemental oxygen; Z68.31 Body mass index [BMI] 31.0-31.9, adult
CPT/HCPCS: 87081